=== PATIENT | female | born 1970 | race Caucasian/White ===

== ENCOUNTER 2019-06-07 19:29 | Inpatient (IN) | payer OTHER ==
[~2019-06-07] VITALS: Ht 165.1 cm; Wt 73.0 kg
--- NOTE | 2019-06-07 19:36 | NUR ---
Dr. Murphy at bedside for MSE.
[2019-06-07] MEDS ORDERED: HYDROCODONE/APAP 5-325MG TABLET PO ONE (19:45)
[2019-06-07] MEDS ORDERED: IBUPROFEN 600 MG TABLET PO ONE (19:45)
[2019-06-07] MEDS ORDERED: TDAP DIPH,PERTUSS,TET VAC/PF 0.5 ML DISP.SYRIN IM ONE (19:45)
--- NOTE | 2019-06-07 19:56 | NUR ---
Xray at bedside.
[2019-06-07] MEDS ORDERED: NEOMY/BACITRA/POLYMYXIN B OINT UD PACKET TP ONE (20:36)
--- NOTE | 2019-06-07 21:17 | NUR ---
[employer] at bedside interviewing patient.
--- NOTE | 2019-06-07 22:14 | NUR ---
Pt awaiting to be picked up by friend.
--- NOTE | 2019-06-08 00:14 | NUR ---
Pt states that she is actually homeless and was sleeping in the car, her uncle kicked her out and doesn't want to pick her up. Charge Nurse Krishna informed.
[2019-06-08] MEDS ORDERED: ONDANSETRON 4 MG/2 ML VIAL IV PRN (01:30)
[2019-06-08] MEDS ORDERED: Z GUARD REMEDY PASTE 57 GM TUBE TOP PRN (01:30)
[2019-06-08] MEDS ORDERED: MAGNESIUM HYDROXIDE 30 ML LIQUID UDC PO PRN (01:30)
[2019-06-08] MEDS ORDERED: ACETAMINOPHEN 325 MG TABLET PO PRN (01:30)
[2019-06-08] MEDS ORDERED: HYDROCODONE/APAP 5-325MG TABLET PO ONE (01:45)
[2019-06-08 02:04] LABS: BASOPHILS # (AUTO) 0.1 K/uL (0.0-8.0); BASOPHILS % (AUTO) 0.5 % (0.0-2.0); EOSINOPHILS # (AUTO) 0.2 K/uL (0.0-0.7); EOSINOPHILS % (AUTO) 1.4 % (0.0-7.0); HEMATOCRIT 37.9 % (31.2-41.9); HEMOGLOBIN 12.1 g/dL (10.9-14.3); LYMPHOCYTES # (AUTO) 2.8 K/uL (20.0-40.0); LYMPHOCYTES % (AUTO) 20.5 % (20.5-51.5); MEAN CORPUSCULAR HEMOGLOBIN 23.6 uug (24.7-32.8); MEAN CORPUSCULAR HGB CONC 32 g/dL (32.3-35.6); MEAN CORPUSCULAR VOLUME 73.8 fL (75.5-95.3); MONOCYTES # (AUTO) 1.3 K/uL (2.0-10.0); MONOCYTES % (AUTO) 9.4 % (0.0-11.0); NEUTROPHILS # (AUTO) 9.4 K/uL (1.8-8.9); NEUTROPHILS % (AUTO) 68.2 % (38.5-71.5); PLATELET COUNT (AUTO) 403 K/uL (179-408); RED BLOOD CELL COUNT(AUTO) 5.13 MIL/uL (3.63-4.92); WHITE BLOOD COUNT (AUTO) 13.7 K/uL (3.8-11.8)
--- NOTE | 2019-06-08 02:05 | NUR ---
Report given to Lisseth CUELLAR Medsurg.
[2019-06-08 02:14] LABS: BILIRUBIN,TOTAL 0.2 mg/dL (0.2-1.0); CREATININE 0.8 mg/dL (0.6-1.3); POTASSIUM 3.6 mmol/L (3.5-5.1); TOTAL PROTEIN, SERUM 6.9 g/dL (6.4-8.2)
[2019-06-08 02:21] LABS: THYROID STIMULATING HORMONE 4.623 mIU/mL (0.358-3.740)
[2019-06-08 04:01] VITALS: BP 157/90
--- NOTE | 2019-06-08 05:36 | NUR ---
Admitted. alert x4 right leg in a splint toes with good circulation up in 2 pillows,oriented to room, bilaterl knee bruise noted took pictures takenright wrist purple and bruise noted in 4th and fifth fingers.
--- NOTE | 2019-06-08 06:43 | NUR ---
slept 7 hours
[2019-06-08] MEDS: MORPHINE SULFATE 2 MG/1 ML DISP.SYRIN IV PRN ×4 (07:25→20:06)
--- NOTE | 2019-06-08 07:30 | NUR ---
received awake, alert and oriented, states pain on the right ankle is much better, almost gone, right lower leg with sera wrap, toes warm to touch and able to wiggle them freely, elevated on three pillows, explained plan of care- verbalized understanding, call light within reach
--- NOTE | 2019-06-08 10:00 | NUR ---
up to BR with crutches, nwb on right foot, with minimal assistance, voided qs, am care done
[2019-06-08 10:37] LABS: IRON, SERUM 23 ug/dL (50-175)
[2019-06-08 11:15] VITALS: BP 115/70
--- NOTE | 2019-06-08 11:32 | NUR ---
medicated for c/o pain on right ankle- medicated as ordered prn, ice pack applied and kept elevated on 3 pillows
--- NOTE | 2019-06-08 13:30 | NUR ---
seen by Dr Mccall
--- NOTE | 2019-06-08 14:53 | NUR ---
called central supply and ordered othopedic boot
--- NOTE | 2019-06-08 15:10 | NUR ---
CS brought orthopedic boot but small size- pt is medium- will look for size
--- NOTE | 2019-06-08 15:35 | NUR ---
medium size not avail- will try to find size in am
[2019-06-08 16:00] VITALS: BP 134/84
--- NOTE | 2019-06-08 16:15 | NUR ---
c/o of pain on right foot but wants to go to BR first- tried to go to BR with crutches but unsteady, placed on commode instead and voided qs, medicated for pain thereafter as ordered, encouraged to take more oral fluids.
--- NOTE | 2019-06-08 18:07 | NUR ---
resting, dozing on and off, right toes with good circulation, warm to touch, able to move freely and states doesnt have pain when she moves them, kept right leg elevated on 3 pillows ans ice pack on, all needs attended , safety measures maintained, call light within reach
[2019-06-08 20:07] VITALS: BP 136/78
[2019-06-09] MEDS: MORPHINE SULFATE 2 MG/1 ML DISP.SYRIN IV PRN ×3 (00:25→19:23)
[2019-06-09] MEDS: HYDROCODONE/APAP 5-325MG TABLET PO PRN ×3 (03:19→17:00)
[2019-06-09 04:10] VITALS: BP 150/77
[2019-06-09 06:17] LABS: BASOPHILS # (AUTO) 0.1 K/uL (0.0-8.0); BASOPHILS % (AUTO) 0.5 % (0.0-2.0); EOSINOPHILS # (AUTO) 0.3 K/uL (0.0-0.7); HEMOGLOBIN 11.4 g/dL (10.9-14.3); LYMPHOCYTES # (AUTO) 2.2 K/uL (20.0-40.0); LYMPHOCYTES % (AUTO) 21.4 % (20.5-51.5); MEAN CORPUSCULAR HEMOGLOBIN 23.7 uug (24.7-32.8); MEAN CORPUSCULAR HGB CONC 32 g/dL (32.3-35.6); MEAN CORPUSCULAR VOLUME 74.8 fL (75.5-95.3); MONOCYTES % (AUTO) 9.5 % (0.0-11.0); NEUTROPHILS # (AUTO) 6.7 K/uL (1.8-8.9); NEUTROPHILS % (AUTO) 65.6 % (38.5-71.5); PLATELET COUNT (AUTO) 359 K/uL (179-408); RED BLOOD CELL COUNT(AUTO) 4.82 MIL/uL (3.63-4.92); WHITE BLOOD COUNT (AUTO) 10.2 K/uL (3.8-11.8)
[2019-06-09 06:24] LABS: CREATININE 0.7 mg/dL (0.6-1.3); POTASSIUM 4.3 mmol/L (3.5-5.1)
--- NOTE | 2019-06-09 06:31 | NUR ---
pt rested well in between care; pain management; received 3x morphine and one time Abbott; assisted to bedside commode; needs attended; continue to monitor; continue plan of care.
--- NOTE | 2019-06-09 08:00 | NUR ---
awake alert and oriented, denies of pain at this time, right leg with splint wrapped with sera bandage, elevated on 3 pillows, toes warm to touch, safety measures maintained, call light within reach
[2019-06-09] MEDS: FAMOTIDINE 20 MG TABLET PO SCH (08:27)
[2019-06-09] MEDS: FERROUS SULFATE 325 MG TABEC PO SCH (11:21)
[2019-06-09 11:30] VITALS: BP 138/80
--- NOTE | 2019-06-09 13:12 | NUR ---
PT in room for eval
[2019-06-09 16:26] VITALS: BP 173/84
[2019-06-09] MEDS: CLONIDINE HCL 0.1 MG TABLET PO PRN (16:26)
--- NOTE | 2019-06-09 18:15 | NUR ---
been very pleasant and cooperative, assisted to BR with crutches, voided qs, requested for laxative earlier which was given, medicated x 2 with [place] this shift with relief, vss, all needs attended and met, call light within reach
[2019-06-09 18:26] VITALS: BP 142/83
[2019-06-09 20:00] VITALS: BP 150/76
[2019-06-10] MEDS: HYDROCODONE/APAP 5-325MG TABLET PO PRN ×4 (03:40→18:16)
[2019-06-10 04:30] VITALS: BP 148/89
--- NOTE | 2019-06-10 06:13 | NUR ---
Patient slept intermittently. c/o R ankle pain, medicated w/ PRN Morphine 2mg IV x 1 and [place] 5-325mg x1. Patient noted w/ episode of crying d/t family issues and she said she has nowhere to go. Social service consult ordered. Patient compliant w/ treatment and care. All needs attended. Safety measures in place. Will endorse accordingly
--- NOTE | 2019-06-10 07:58 | NUR ---
Patient noted resting in bed with eyes closed, no facial cues of pain noted at this time, no signs of distress noted, call light in reach, bed locked and in lowest position, all needs met at this time
[2019-06-10] MEDS: FERROUS SULFATE 325 MG TABEC PO SCH (08:24)
[2019-06-10] MEDS: FAMOTIDINE 20 MG TABLET PO SCH (08:24)
[2019-06-10] MEDS: HYDROCHLOROTHIAZIDE 12.5 MG CAPSULE PO SCH (10:26)
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
[2019-06-10 12:50] VITALS: BP 141/81
--- NOTE | 2019-06-10 19:43 | NUR ---
Received patient awake and alert. Patient shows no signs or symptoms of distress at this time. Patient complains of 5/10 pain at this time after receiving [place]. Patient also complains of having generalized itching. Dr. Nolan notifed and received order for Benedryl. Right leg with soft cast elevated. Bed set to lowest position. Call light within reach. Will administer medication when available.
[2019-06-10 20:00] VITALS: BP 156/91
[2019-06-10] MEDS: MORPHINE SULFATE 2 MG/1 ML DISP.SYRIN IV PRN (20:47)
[2019-06-10] MEDS: CLONIDINE HCL 0.1 MG TABLET PO PRN (21:41)
[2019-06-10] MEDS: diphenhydrAMINE 50 MG/1 ML VIAL IV PRN (21:41)
[2019-06-11 05:00] VITALS: BP 116/75
[2019-06-11] MEDS: HYDROCODONE/APAP 5-325MG TABLET PO PRN ×3 (05:53→17:35)
--- NOTE | 2019-06-11 07:37 | NUR ---
Patient shows no signs or symptoms of distress at this time. Patient resting comfortably in bed. Patient endorsed to AM nurse in stable condition.
[2019-06-11] MEDS: FAMOTIDINE 20 MG TABLET PO SCH (08:28)
[2019-06-11] MEDS: HYDROCHLOROTHIAZIDE 12.5 MG CAPSULE PO SCH (08:28)
[2019-06-11] MEDS: FERROUS SULFATE 325 MG TABEC PO SCH (08:28)
--- NOTE | 2019-06-11 12:41 | NUR ---
Received Patient awake in bed. Alert and orientedx4. not in distress. Continue pain management if needed. [place] 5-325mg given around 12NN. For ortho surgeon consult. MD Hastings notified. agree to visit patient this day in the afternoon. will continue monitor
[2019-06-11 13:05] VITALS: BP 124/70
--- NOTE | 2019-06-11 14:27 | NUR ---
PATIENT REASSIGNMENT AT 1415. RECEIVED PATIENT IN BED, A&OX4. FOR ORTHO CONSULT AND WILL DROP BY TODAY IN THE PM REPORTED BY POLO MENDENHALL. CALL LIGHT WITHIN EASY REACH. CONTINUE WITH PLAN OF CARE
--- NOTE | 2019-06-11 14:29 | NUR ---
Patient done with therapy for therapeutic exercises. Endorse to RN for continuity of care.
[2019-06-11 17:15] VITALS: BP 141/57
--- NOTE | 2019-06-11 19:50 | NUR ---
Received patient awake and alert. Patient shows no signs or symptoms of distress at this time. Call light within reach. Bed set to lowest position. Instructed patient to call for help before going to the bathroom. Patient verbalized understanding. Will continue to monitor patient.
[2019-06-11 20:00] VITALS: BP 121/82
[2019-06-11] MEDS: diphenhydrAMINE 50 MG/1 ML VIAL IV PRN (21:03)
[2019-06-12] MEDS: MORPHINE SULFATE 2 MG/1 ML DISP.SYRIN IV PRN (05:50)
[2019-06-12 05:59] VITALS: BP 137/85
--- NOTE | 2019-06-12 07:00 | NUR ---
Received patient in bed asleep but arousable to name and touch. On room air with no signs of distress at this time. IV left AC 22g heplock clean and patent. Bruises on both left and right arms. Bruises on bilateral knees but no complaints of pain on the area. Right ankle wrapped and on soft cast, complained of pain on right ankle and heel, will give [place] PRN as ordered. Left great toe covered with Mepilex. Crutches close to bed. Call light and belongings within reach. Bed locked in lowest position with siderails 2x up. Informed patient to call if wants to go to bathroom, verbalized understanding. Will continue to monitor
--- NOTE | 2019-06-12 07:02 | NUR ---
Patient shows no signs or symptoms of distress at this time. Vital signs stable. Patient endorsed to AM nurse in stable condition.
[2019-06-12] MEDS: HYDROCODONE/APAP 5-325MG TABLET PO PRN (07:55)
[2019-06-12 08:00] VITALS: BP 134/77
[2019-06-12] MEDS: FAMOTIDINE 20 MG TABLET PO SCH (09:21)
[2019-06-12] MEDS: HYDROCHLOROTHIAZIDE 12.5 MG CAPSULE PO SCH (09:21)
[2019-06-12] MEDS: FERROUS SULFATE 325 MG TABEC PO SCH (09:21)
--- NOTE | 2019-06-12 10:00 | NUR ---
Called Dr. Hastings's office, talked to board of education secretary [place]. According to her, Dr. Hastings already did the consultation yesterday afternoon and talked to a nurse but couldn't specify which one. No notes from Dr. Hastings and nurse. Will follow-up.
--- NOTE | 2019-06-12 11:51 | NUR ---
Talked to Dr. Thorpe regarding patient's preferred pain medication for discharge, Baxter. Also informed him of patient's preferred DC disposition. Patient refused SNF placement, per patient, her sister will send a lyft to pick her up and send her to a hotel for the meantime, until the patient's brother could pick her up later tonight. Case mgt and made aware.
[2019-06-12 16:00] VITALS: BP 138/78
--- NOTE | 2019-06-12 16:50 | NUR ---
Pt left unit via wheelchair accompanied by Marialuisa Mae RN and Rolando Ignacio RN. Pt on posterior splint with sera wrap, refused to put on [place], stated she will do it once she gets home. DC instructions given and papers signed and given to pt. Pt instructed to make an appointment with her primary MD and ortho MD for follow-up, names and information given.Pt signed Homeless waiver form. Verbalized understanding of all DC instructions. Prescription med and CD of xrays given. Pt belongings list reviewed with pt, all accounted for, form signed. Marijuana from contraband locker in [facility] office returned. Picked up by friend. IV on left AC and ID band removed.
== END 2019-06-12 16:50 | disposition home or self-care (01) | DRG 342 ==
LOC: ER 19:29 → MEDSURG3 06-08 02:17
PROVIDERS: ADMIT Internal Medicine; ATTEND Internal Medicine
DX: S92.141A Displaced dome fracture of right talus, initial encounter for closed fracture (principal); D72.828 Other elevated white blood cell count; E61.1 Iron deficiency; S91.112A Laceration without foreign body of left great toe without damage to nail, initial encounter; F17.210 Nicotine dependence, cigarettes, uncomplicated; V49.49XA Driver injured in collision with other motor vehicles in traffic accident, initial encounter; Y92.410 Unspecified street and highway as the place of occurrence of the external cause; I10 Essential (primary) hypertension; M79.672 Pain in left foot; Z72.89 Other problems related to lifestyle; R71.8 Other abnormality of red blood cells
CPT/HCPCS: 36415; 73610; 73630; 83550; 84443; 85025; 90715; A4217; A4663; G0378; J1200; J2270

== ENCOUNTER 2021-12-28 22:51 | Emergency (ER) | payer OTHER ==
[~2021-12-28] VITALS: Ht 160 cm; Wt 74.8 kg
--- NOTE | 2021-12-29 00:14 | NUR ---
Dr. Cristobal at bedside. MSE in progress.
[2021-12-29] MEDS ORDERED: OXYCODONE/APAP 5-325 MG TABLET PO ONE (01:15)
[2021-12-29] MEDS ORDERED: OXYCODONE/APAP 5-325 MG TABLET ONE (01:16)
[2021-12-29] MEDS ORDERED: IV NORMAL SALINE 250 ML IV ONE (02:11)
[2021-12-29] MEDS ORDERED: SWABABLE VALVE TRANSFER SET EA MC ONE (02:11)
[2021-12-29] MEDS ORDERED: IOHEXOL 350 100 ML INFUS..BTL ONE (02:11)
[2021-12-29] MEDS ORDERED: LIDOCAINE/PRILOCAINE 5 GM CREAM.GM. ONE (02:45)
[2021-12-29] MEDS ORDERED: PROCHLORPERAZINE MALEATE 5 MG TABLET ONE ×2 (02:51→05:05)
[2021-12-29] MEDS ORDERED: HYDROMORPHONE 2 MG/1 ML DISP.SYRIN ONE (02:51)
[2021-12-29 03:42] LABS: CREATININE 0.7 mg/dL (0.6-1.3); HEMATOCRIT 31.7 % (31.2-41.9); MAGNESIUM 1.7 mg/dL (1.8-2.4); MEAN CORPUSCULAR HEMOGLOBIN 21.8 uug (24.7-32.8); MEAN CORPUSCULAR VOLUME 69.4 fL (75.5-95.3); PLATELET COUNT (AUTO) 390 K/uL (179-408); POTASSIUM 3.4 mmol/L (3.5-5.1)
[2021-12-29] MEDS ORDERED: OXYC-128 PO (04:26)
[2021-12-29] MEDS ORDERED: PROCHLORPERAZINE MALEATE 5 MG TABLET PO ONE (05:15)
[2021-12-29] MEDS ORDERED: PROCHLORPERAZINE EDISYLATE 10 MG/2 ML VIAL ONE (05:38)
[2021-12-29] MEDS ORDERED: PROCHLORPERAZINE EDISYLATE 10 MG/2 ML VIAL IM ONE (05:45)
[2021-12-29 06:41] VITALS: BP 130/71
--- NOTE | 2021-12-29 06:41 | NUR ---
Patient discharged to home in stable condition. Written and verbal after care instructions given. Patient verbalizes understanding of instructions. Stressed follow up or return to ER for worsening s/s. Patient is a/ox4, NAD noted. Patient is able to walk with steady gait
== END 2021-12-29 06:42 | disposition home or self-care (01) ==
LOC: ER 22:51
DX: S20.219A Contusion of unspecified front wall of thorax, initial encounter (principal); S93.401A Sprain of unspecified ligament of right ankle, initial encounter; S50.11XA Contusion of right forearm, initial encounter; S80.02XA Contusion of left knee, initial encounter; S01.511A Laceration without foreign body of lip, initial encounter; E83.42 Hypomagnesemia; Y92.410 Unspecified street and highway as the place of occurrence of the external cause; V49.40XA Driver injured in collision with unspecified motor vehicles in traffic accident, initial encounter; D50.9 Iron deficiency anemia, unspecified; R11.2 Nausea with vomiting, unspecified; Z87.81 Personal history of (healed) traumatic fracture; E87.6 Hypokalemia
CPT/HCPCS: 12011; 99285; 71275; 80048; 83735; 85025; 85379; 36415; 71111; 73070; 73560; 73610; 96372; Q9967; J0780; J1170; J8499 ×2